=== PATIENT | male | born 1990 | race American Indian/Alaskan Native ===

== ENCOUNTER 2017-01-21 22:49 | Emergency (ER) | payer OTHER ==
[2017-01-21] MEDS ORDERED: ANCEF/NS 1 GM/50 ML 1 GM/50 ML BAG IV ONE (22:58)
[2017-01-21] MEDS ORDERED: MORPHINE IV ONE (22:59)
[2017-01-21] MEDS ORDERED: ZOFRAN IV ONE (22:59)
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
[2017-01-21] MEDS ORDERED: NACL 0.9% 1000 ML 1,000 ML IV ONE (23:06)
[2017-01-21 23:15] LABS: Basophils % (Auto) 0.6 % (0.0-1.8); Eosinophils % (Auto) 0.9 % (0.0-4.3); Hematocrit 43.9 % (35.5-45.6); Hemoglobin 14.7 gm/dl (11.8-15.2); Mean Corpuscular HGB Conc 33 % (32-34); Mean Corpuscular Hemoglobin 32 pg (28-32); Mean Corpuscular Volume 96 fl (84-94); Platelet Count 282 K/mm3 (140-440); Red Blood Count 4.57 M/mm3 (3.65-5.03); Red Cell Distribution Width 12.6 % (13.2-15.2); White Blood Count 9.8 K/mm3 (4.5-11.0)
[2017-01-21 23:25] LABS: INR 0.98 (0.87-1.13); Partial Thromboplastin Time 29.1 Sec. (24.2-36.6)
[2017-01-21 23:29] LABS: Alanine Aminotransferase 42 units/L (7-56); Albumin 4.4 g/dL (3.9-5); Albumin/Globulin Ratio 1.5 %; Alkaline Phosphatase 65 units/L (35-129); Anion Gap 17 mmol/L; Blood Urea Nitrogen 13 mg/dL (9-20); Calcium 9.5 mg/dL (8.4-10.2); Carbon Dioxide 26 mmol/L (22-30); Chloride 103.3 mmol/L (98-107); Glucose 114 mg/dL (75-100); Potassium 4.1 mmol/L (3.6-5.0); Sodium 142 mmol/L (137-145); Total Protein 7.3 g/dL (6.3-8.2)
[2017-01-21] MEDS ORDERED: NACL ONE (23:50)
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
[2017-01-22] MEDS ORDERED: XYLOCAINE 1% 20 mL ONE (02:09)
[2017-01-22 02:23] VITALS: BP 125/74
[2017-01-22] MEDS ORDERED: XYLOCAINE 2%/EPI 1:100,000 INFILTRATI ONE ×2 (02:30→02:37)
[2017-01-22] MEDS ORDERED: TRIPLE ANTIBIOTIC TP ONE ×2 (02:30→03:54)
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
== END 2017-01-22 04:00 | disposition home or self-care (01) ==
LOC: ED 22:49
DX: S51.811A Laceration without foreign body of right forearm, initial encounter (principal); S31.110A Laceration without foreign body of abdominal wall, right upper quadrant without penetration into peritoneal cavity, initial encounter; J45.909 Unspecified asthma, uncomplicated; M19.90 Unspecified osteoarthritis, unspecified site; X58.XXXA Exposure to other specified factors, initial encounter; Y93.89 Activity, other specified; Y92.89 Other specified places as the place of occurrence of the external cause; Y99.8 Other external cause status
CPT/HCPCS: 12004; 36415; 71010; 71260; 74177; 80053; 85025; 85610; 85730; 86850; 86900; 86901; 96365; 96375; 99284; J0690; J2270; J2405; J7030; Q9967; A6250